=== PATIENT | female | born 1995 | race Hispanic/Latino ===

== ENCOUNTER 2020-08-09 06:41 | Day surgery (SDC) | payer MEDICAID ==
[2020-08-06 13:45] VITALS: BP 119/65
[2020-08-06 13:50] LABS: BASOPHILS % (AUTO) 0.7 % (0.0-5.0); EOSINOPHILS % (AUTO) 2.3 % (0.0-8.0); HEMATOCRIT 38.1 % (36-48); LYMPHOCYTES % (AUTO) 29.8 % (21.0-51.0); MEAN CORPUSCULAR HGB CONC 31.5 g/dL (32.0-36.0); MONOCYTES % (AUTO) 4.2 % (3.0-13.0); NEUTROPHILS % (AUTO) 62.9 % (40.0-77.0); PLATELET COUNT (AUTO) 359 K/uL (130-400); RED BLOOD CELL COUNT(AUTO) 5.01 MIL/uL (4.00-5.50); RED CELL DISTRIBUTION WIDTH 17.7 % (11.0-15.5); WHITE BLOOD COUNT (AUTO) 8.8 K/uL (4.8-10.8)
[~2020-08-09] VITALS: Ht 157.5 cm; Wt 94.6 kg
[2020-08-09] VITALS (14 sets, daily range): BP systolic 109–127; BP diastolic 67–78
[2020-08-09] MEDS ORDERED: LACTATED RINGERS 1000ML 1,000 ML IV ONE (07:41)
[2020-08-09] MEDS: CEFAZOLIN SODIUM 1 GM VIAL IVP SCH ×2 (08:00→10:48)
[2020-08-09] MEDS ORDERED: SUCCINYLCHOLINE CHLORIDE 20 MG/ML 10 ML VIAL ONE (10:15)
[2020-08-09] MEDS ORDERED: LIDOCAINE PF 2% 5ML ABBOJECT ONE (10:15)
[2020-08-09] MEDS ORDERED: PROPOFOL 10 MG/ML 20ML VIAL IV ONE (10:16)
[2020-08-09] MEDS ORDERED: ROCURONIUM 10MG/1ML SYR 10 MG/ML ML ONE (10:16)
[2020-08-09] MEDS ORDERED: FENTANYL CITRATE PF 50 MCG/1 ML 2ML VIAL ONE (10:16)
[2020-08-09] MEDS ORDERED: BUPIVACAINE/PF 0.25% 30ML VIAL IJ ONE (10:27)
[2020-08-09] MEDS ORDERED: KETOROLAC TROMETHAMINE 30MG/ML ONE (11:01)
[2020-08-09] MEDS ORDERED: ONDANSETRON HCL 4 MG/2 ML VIAL ONE (11:01)
[2020-08-09] MEDS ORDERED: MEPERIDINE-PF 25 MG/ML SYG ONE ×2 (11:29→11:39)
== END 2020-08-09 12:59 | disposition home or self-care (01) ==
LOC: DAH 06:41 → SUH 06:41
PROVIDERS: ATTEND Obstetrics & Gynecology
DX: Z30.2 Encounter for sterilization (principal); Z64.1 Problems related to multiparity; E66.9 Obesity, unspecified; Z20.822 Contact with and (suspected) exposure to COVID-19
CPT/HCPCS: 36415; 58671; 84703; 85025; 86850; 86900; 86901; A4215 ×2; A4221; A4222; A4223; A4264; A4335; A4351; A4510; A4520; A4600; A4606; A4663; A4930; A6260; C1769 ×3; C9803; G0168; J0330; J0690; J1885; J2001; J2175 ×2; J2405; J2704; J3010; J3490; J7120; U0003

== ENCOUNTER 2020-12-07 13:57 | Emergency (ER) | payer MEDICAID ==
[~2020-12-07] VITALS: Ht 152.4 cm; Wt 98.0 kg
[2020-12-07] MEDS ORDERED: NAPROXEN 250 MG TAB PO SCH (18:00)
[2020-12-07] MEDS ORDERED: NAPR-1180 PO (18:59)
[2020-12-07 19:06] VITALS: BP 124/74
== END 2020-12-07 19:09 | disposition home or self-care (01) ==
LOC: EDH 13:57
DX: M54.6 Pain in thoracic spine (principal); R07.81 Pleurodynia; Z20.822 Contact with and (suspected) exposure to COVID-19; Z79.1 Long term (current) use of non-steroidal anti-inflammatories (NSAID)
CPT/HCPCS: 71045; 87635; 87804 ×2; 99284; C9803

== ENCOUNTER 2021-07-01 10:03 | Emergency (ER) | payer MEDICAID ==
[~2021-07-01] VITALS: Ht 152.4 cm; Wt 99.8 kg
[~2021-07-01 10:03] MED LIST: NAPR-1180 PO
[2021-07-01 10:07] VITALS: BP 117/70
== END 2021-07-01 11:03 | disposition home or self-care (01) ==
LOC: EDH 10:03
DX: S63.502A Unspecified sprain of left wrist, initial encounter (principal); Z79.1 Long term (current) use of non-steroidal anti-inflammatories (NSAID); X58.XXXA Exposure to other specified factors, initial encounter; Y93.89 Activity, other specified; Y92.89 Other specified places as the place of occurrence of the external cause; Y99.8 Other external cause status
CPT/HCPCS: 29125; 73100; 73120

== ENCOUNTER 2021-09-01 12:54 | Emergency (ER) | payer MEDICAID ==
[~2021-09-01] VITALS: Ht 152.4 cm; Wt 103.4 kg
[2021-09-01 12:55] VITALS: BP 140/79
[2021-09-01] MEDS ORDERED: CEPH500B PO (13:45)
[2021-09-01] MEDS ORDERED: IBUP-2070 PO (13:45)
[2021-09-01] MEDS ORDERED: IBUPROFEN 600 MG TABLET ONE (13:52)
[2021-09-01] MEDS ORDERED: IBUPROFEN 600 MG TABLET PO ONE (14:00)
== END 2021-09-01 13:53 | disposition home or self-care (01) ==
LOC: EDH 12:54
DX: L70.9 Acne, unspecified (principal); L03.211 Cellulitis of face; Z98.890 Other specified postprocedural states